=== PATIENT | female | born 1980 | race Caucasian/White ===

== ENCOUNTER 2021-02-16 18:07 | Emergency (ER) | payer BC ==
[2021-02-16] MEDS ORDERED: Ondansetron PF 4 MG/2 ML Vial ONE (18:26)
[2021-02-16 18:42] LABS: #Basophils 0.1 thou/uL (0.0-0.2); #Eosinphils 0.2 thou/uL (0.0-0.7); #Lymphocytes 3.6 thou/uL (1.20-3.40); #Monocytes 0.9 thou/uL (0.11-0.59); #Neutrophils 4.1 thou/uL (1.40-6.50); %Basophils 1.1 % (0.0-1.0); %Eosinophils 2.5 % (0.0-10.0); %Lymphocytes 40.2 % (21.0-51.0); %Monocytes 10.6 % (0.0-10.0); %Neutrophils 45.7 % (42.0-75.0); Mean Corpuscular HGB CONC 31.4 g/dL (32.0-36.0); Mean Corpuscular Hemoglobin 28.1 pg (27.0-31.0); Mean Corpuscular Volume 89.5 fL (78.0-98.0); Mean Platelet Volume 7.8 fL (7.4-10.4); Platelet Count 348 thou/uL (130-400); RBC Distribution Width 11.6 % (11.5-14.5); Red Blood Cell (RBC) Count 4.98 mill/uL (4.20-5.40); White Blood Cell (WBC) Count 8.9 thou/uL (4.8-10.8)
[2021-02-16] MEDS ORDERED: Famotidine/PF 20 mg/2ml Vial ONE (18:42)
[2021-02-16] MEDS ORDERED: Nitroglycerin 2% Ointment 1 INCH/1 GM Packet ONE (18:42)
[2021-02-16] MEDS ORDERED: Aspirin Chewable 81 MG TAB ONE (18:42)
[2021-02-16 18:57] LABS: ALT (SGPT) 24 U/L (8-55); AST (SGOT) 26 U/L (5-34); Albumin 4.9 g/dL (3.5-5.0); Alkaline Phosphatase 60 U/L (40-110); Anion Gap 17 mmol/L (10-20); BUN (Urea Nitrogen) 14 mg/dL (7.0-18.7); Bilirubin, Total 0.6 mg/dL (0.2-1.2); Calc. Creatinine Clearance 0 mL/min (70-130); Carbon Dioxide 22 mmol/L (22-29); Chloride 102 mmol/L (98-107); Globulin 2.9 g/dL (2.4-3.5); Glucose 87 mg/dL (70-105); Lipase 19 U/L (8-78); Potassium 3.6 mmol/L (3.5-5.1); Protein, Total 7.8 g/dL (6.0-8.3); Sodium 137 mmol/L (136-145)
[2021-02-16 21:58] LABS: Troponin I Less than 0.010 ng/mL (< 0.028)
== END 2021-02-16 22:11 | disposition home or self-care (01) ==
LOC: NAV ERS 18:07
DX: R07.9 Chest pain, unspecified (principal); K21.9 Gastro-esophageal reflux disease without esophagitis; M06.9 Rheumatoid arthritis, unspecified; Z87.891 Personal history of nicotine dependence; Z79.899 Other long term (current) drug therapy
CPT/HCPCS: 71045; 80053; 83690; 84484; 85025; 93005; 96374; 96375; J2405; S0028